=== PATIENT | female | born 1960 | race Caucasian/White ===

== ENCOUNTER → 2017-03-25 | Outpatient (CLI) | payer OTHER ==
[~2017-03-25] MED LIST: OMEP40CA3 PO; [UNRECOGNIZED DRUG - OTHER]
== END | disposition home or self-care (01) ==
LOC: CFH 12:11
PROVIDERS: ATTEND Family Medicine
DX: Z12.31 Encounter for screening mammogram for malignant neoplasm of breast (principal); Z85.3 Personal history of malignant neoplasm of breast; Z90.11 Acquired absence of right breast and nipple; Z92.3 Personal history of irradiation; Z92.21 Personal history of antineoplastic chemotherapy
CPT/HCPCS: G0202

== ENCOUNTER → 2018-08-05 | Outpatient (CLI) | payer OTHER | END | disposition home or self-care (01) | LOC: CFH 07:29 | PROVIDERS: ATTEND Family Medicine | DX: Z12.31 Encounter for screening mammogram for malignant neoplasm of breast (principal); Z85.3 Personal history of malignant neoplasm of breast; Z92.21 Personal history of antineoplastic chemotherapy; Z92.3 Personal history of irradiation | CPT/HCPCS: 77063; 77067 ==

== ENCOUNTER → 2019-08-11 | Outpatient (CLI) | payer OTHER | END | disposition home or self-care (01) | LOC: CFH 09:32 | PROVIDERS: ATTEND Family Medicine | DX: Z12.31 Encounter for screening mammogram for malignant neoplasm of breast (principal); E78.5 Hyperlipidemia, unspecified; Z85.3 Personal history of malignant neoplasm of breast | CPT/HCPCS: 75571; 77063; 77067 ==

== ENCOUNTER → 2019-12-03 | Outpatient (CLI) | payer OTHER | END | disposition home or self-care (01) | LOC: CFH 10:02 | PROVIDERS: ATTEND Family Medicine | DX: N61.0 Mastitis without abscess (principal); N63.10 Unspecified lump in the right breast, unspecified quadrant | CPT/HCPCS: 76642; 77065; G0279 ==